=== PATIENT | female | born 1995 | race Hispanic/Latino ===

== ENCOUNTER 2018-05-30 06:00 | Inpatient (IN) | payer OTHER ==
[2018-05-30] MEDS ORDERED: Butorphanol Tartrate 1 MG/ML VIAL SLOW IVP PRN (08:52)
[2018-05-30] MEDS ORDERED: Ondansetron PF 4 MG/2 ML Vial IVP PRN ×2 (08:52→20:44)
[2018-05-30] MEDS ORDERED: Promethazine HCl 25 MG/ML VIAL IM PRN ×2 (08:52→20:44)
[2018-05-30] MEDS ORDERED: Acetaminophen 500 MG TAB PO PRN (08:52)
[2018-05-30] MEDS ORDERED: Ibuprofen 800 MG TAB PO PRN (08:52)
[2018-05-30] MEDS ORDERED: Misoprostol 200 MCG TAB PR PRN (08:52)
[2018-05-30] MEDS ORDERED: HYDROcodone/Acetaminophen 5/325 mg Tablet PO PRN ×2 (08:52)
[2018-05-30] MEDS ORDERED: NS / Oxytocin 40 units/1000ml 1,000 ML IV PRN (08:52)
[2018-05-30] MEDS ORDERED: Lidocaine 1% (PF) 30 ML VIAL SC PRN (08:52)
[2018-05-30] MEDS ORDERED: NS w/ Oxytocin 10 units 500 ML IV SCH ×2 (09:00)
[2018-05-30] MEDS: Lactated Ringer's 1,000 ML IV SCH (09:40)
[2018-05-30 10:20] LABS: Hemoglobin 10.7 g/dL (12.0-16.0); Mean Corpuscular Hemoglobin 30.4 pg (27.0-31.0); Mean Corpuscular Volume 89.5 fL (78.0-98.0); Mean Platelet Volume 7.3 fL (7.4-10.4); Platelet Count 287 thou/uL (130-400); RBC Distribution Width 12.9 % (11.5-14.5); Red Blood Cell (RBC) Count 3.52 mill/uL (4.20-5.40); White Blood Cell (WBC) Count 6.6 thou/uL (4.8-10.8)
[2018-05-30 10:30] VITALS: BMI 32.8
[2018-05-30 10:54] LABS: Syphilis Antibody Nonreactive (Nonreactive); Syphilis Antibody Index 0.05 S/CO (<1.00 Non-Reactive)
[2018-05-30 10:55] LABS: HBSAg Index 0.21 S/CO (0-0.99); Hep B Surf Ag Non-Reactive S/CO (NonReactive)
[2018-05-30] MEDS: Dextrose 5%-Lactated Ringers 1,000 ML IV SCH (13:48)
--- NOTE | 2018-05-30 17:45 | PDOC.LDHP ---
Labor and Delivery H&P Chief complaint: scheduled induction Current gestational age (weeks): 39 Grav: 4 Para: 3 Current complications: none, IUGR Abnormal US findings: No Current medications: pre-romero vitamins Allergies/Adverse Reactions: Allergies Allergy/AdvReac Type Severity Reaction Status Date / Time No Known Allergies Allergy Unverified 05/30/18 10:14 Social history: none - Physical Exam Vital signs reviewed and normal: yes General: NAD, breathing through contractions Heart: RRR Lungs: nonlabored breathing Abdomen: NTTP Extremeties: no edema FHT: category 1 - Vaginal Exam cm dilated: 10 Effacement: 100% Station: 2+ - Assessment L&D Assessment: elective induction at term - Plan Plan: admit to L&D
[2018-05-30] MEDS ORDERED: Milk Of Magnesia 30 ML UDCUP PO PRN (20:44)
[2018-05-30] MEDS ORDERED: Preparation H Ointment 28 GM TUBE PR PRN (20:44)
[2018-05-30] MEDS ORDERED: Lanolin Ointment 7 GM TUBE TOP PRN (20:44)
[2018-05-30] MEDS ORDERED: diphenhydrAMINE 25 MG CAP PO PRN (20:44)
[2018-05-30] MEDS ORDERED: Benzocaine/Menthol 20-0.5% 60 ML CAN TOP PRN (20:44)
[2018-05-30] MEDS ORDERED: Zolpidem Tartrate 5 MG TAB PO PRN (20:44)
[2018-05-30] MEDS ORDERED: NS / Oxytocin 40 units/1000ml 1,000 ML IV SCH (20:44)
[2018-05-30] MEDS ORDERED: Bisacodyl 10 MG SUPP PR PRN (20:44)
[2018-05-30] MEDS: Docusate Calcium (SURFAK) 240 MG CAP PO SCH (21:23)
[2018-05-30] MEDS: Ibuprofen 800 MG TAB PO SCH (21:23)
[2018-05-31] MEDS: HYDROcodone/Acetaminophen 5/325 mg Tablet PO PRN ×4 (02:36→17:33)
[2018-05-31] MEDS: Ibuprofen 800 MG TAB PO SCH ×3 (04:39→21:46)
[2018-05-31 07:00] LABS: Hemoglobin 9.9 g/dL (12.0-16.0); Mean Corpuscular HGB CONC 34.1 g/dL (32.0-36.0); Mean Corpuscular Volume 91.1 fL (78.0-98.0); Mean Platelet Volume 7.1 fL (7.4-10.4); Platelet Count 241 thou/uL (130-400); RBC Distribution Width 12.9 % (11.5-14.5); White Blood Cell (WBC) Count 9.5 thou/uL (4.8-10.8)
[2018-05-31] MEDS: Docusate Calcium (SURFAK) 240 MG CAP PO SCH ×2 (08:18→21:46)
[2018-05-31] MEDS: Prenatal Vitamin 1 TAB PO SCH (08:18)
[2018-05-31] MEDS: Ferrous Sulfate 325 MG TAB PO SCH ×2 (08:20→15:16)
[2018-05-31] MEDS ORDERED: Varicella virus, LIVE 0.5 ML VIAL SC ONE (09:00)
[2018-05-31] MEDS ORDERED: Adacel (T-DAP) 0.5 ML SYRINGE IM ONE (09:00)
[2018-05-31] MEDS ORDERED: Measles/Mumps/Rubella 10 MCG/0.5 ML VIAL SC ONE (09:00)
[2018-05-31] MEDS: Lactated Ringer's 1,000 ML IV SCH (09:15)
[2018-05-31] MEDS: Dextrose 5%-Lactated Ringers 1,000 ML IV SCH (09:15)
[2018-05-31 20:28] VITALS: TEMP 98
--- NOTE | 2018-05-31 21:08 | PDOC.PP ---
Post Progress Note Post Day #: 1 PO intake tolerated: yes Flatus: yes Ambulation: yes Vital Signs (12 hours) Temp Pulse Resp BP BP Pulse Ox 05/31/18 20:00 98.0 F 81 16 102/65 98 05/31/18 17:00 97.8 F 86 16 98/56 L 96 05/31/18 11:47 98.5 F 91 20 111/67 Weight Weight 168 lb - Physical Examination General: NAD Cardiovascular: no m/r/g, RRR Respiratory: clear to auscultation bilaterally, non-labored breathing Abdominal: + bowel sounds, lochia, no distention, appropriately TTP Extremities: negative homans (B) Neurological: no gross focal deficits Psychiatric: A&Ox3 (DC to home in the morning) Result Diagrams: 05/31/18 06:01 Additional Labs: Post Labs Blood Type O POSITIVE 05/30/18 09:55 Hep Bs Antigen Non-Reactive S/CO (NonReactive) 05/30/18 09:55
[2018-06-01] MEDS: HYDROcodone/Acetaminophen 5/325 mg Tablet PO PRN ×2 (02:24→08:14)
[2018-06-01] MEDS: Ibuprofen 800 MG TAB PO SCH ×2 (05:33→14:01)
[2018-06-01] MEDS: Docusate Calcium (SURFAK) 240 MG CAP PO SCH (08:13)
[2018-06-01] MEDS: Prenatal Vitamin 1 TAB PO SCH (08:14)
[2018-06-01] MEDS: Ferrous Sulfate 325 MG TAB PO SCH (08:14)
[2018-06-01 09:11] VITALS: BP 104/62
== END 2018-06-01 14:30 | disposition home or self-care (01) | DRG 807 ==
LOC: L&D 08:30 → 3SW 20:39
PROVIDERS: ADMIT Obstetrics & Gynecology; ATTEND Obstetrics & Gynecology
PROC: 10E0XZZ Delivery of Products of Conception, External Approach (ICD-10-PCS; principal; 2018-05-30)
PROC: 3E033VJ Introduction of Other Hormone into Peripheral Vein, Percutaneous Approach (ICD-10-PCS; 2018-05-30)
DX: O70.0 First degree perineal laceration during delivery (principal); Z37.0 Single live birth; Z3A.39 39 weeks gestation of pregnancy
CPT/HCPCS: 36415; 85027; 86780; 86850; 86900; 86901; 87340; 90471; 90686; 90715; G0008; J0595; J2001

== ENCOUNTER 2024-04-19 04:57 | Emergency (ER) | payer BC, OTHER ==
[2024-04-19 05:29] LABS: #Basophils Less than 0.03 10x3/uL (0.0-0.2); %Basophils 0.2 % (0.0-1.0); %Eosinophils 1.1 % (0.0-10.0); %Lymphocytes 15.4 % (21.0-51.0); %Monocytes 9.4 % (0.0-10.0); %Neutrophils 73.5 % (42.0-75.0); Hematocrit 37.1 % (36.0-47.0); Hemoglobin 12.2 g/dL (12.0-16.0); Mean Corpuscular HGB CONC 32.9 g/dL (32.0-36.0); Mean Corpuscular Hemoglobin 32.5 pg (27.0-31.0); Mean Corpuscular Volume 98.9 fL (78.0-98.0); Mean Platelet Volume 9.5 fL (7.4-10.4); Platelet Count 292 10x3/uL (130-400); RBC Distribution Width 11.8 % (11.5-14.5); Red Blood Cell (RBC) Count 3.75 mill/uL (4.20-5.40)
[2024-04-19] MEDS ORDERED: Ketorolac Tromethamine 30 MG (1 mL) VIAL ONE (05:35)
[2024-04-19] MEDS ORDERED: Morphine 4 MG/ML VIAL ONE (05:35)
[2024-04-19 06:12] LABS: ALT (SGPT) 12 U/L (8-55); AST (SGOT) 14 U/L (5-34); Albumin 3.5 g/dL (3.5-5.0); Alkaline Phosphatase 103 U/L (40-110); Anion Gap 11 mmol/L (10-20); BUN (Urea Nitrogen) 17 mg/dL (7.0-18.7); Bilirubin, Total 0.2 mg/dL (0.2-1.2); Calc. Creatinine Clearance 0 mL/min (70-130); Calcium 8.6 mg/dL (7.8-10.44); Carbon Dioxide 25 mmol/L (22-29); Chloride 107 mmol/L (98-107); Estimated GFR 106; Globulin 3.4 g/dL (2.4-3.5); Glucose 103 mg/dL (70-105); Lipase 25 U/L (8-78); Potassium 3.6 mmol/L (3.5-5.1); Protein, Total 6.9 g/dL (6.0-8.3); Sodium 139 mmol/L (136-145)
[2024-04-19 06:44] LABS: Bacteria/HPF None Seen HPF (None Seen); Bilirubin Negative (Negative); Blood, Urine Negative (Negative); CAUTI Indications for Culture Dysuria,urgency,freq; Clarity Clear (Clear); Glucose, Urine (Dipstick) Normal (Negative); Ketone, Urine Negative (Negative); Leukocyte Negative Leu/uL (Negative); Nitrite Negative (Negative); Protein, Urine (Dipstick) Negative (Neg-Trace); RBC/HPF 0-3 HPF (0-3); Specific Gravity, Urine 1.004 (1.002-1.036); Squamous Epithelial 0-3 HPF (0-3); Urobilinogen Normal mg/dL (Less than 2); WBC/HPF 0-3 HPF (0-3)
[2024-04-19 06:46] LABS: Urine Culture Reflex No No
== END 2024-04-19 10:28 | disposition home or self-care (01) ==
LOC: ERS 04:57
DX: K80.01 Calculus of gallbladder with acute cholecystitis with obstruction (principal); K83.8 Other specified diseases of biliary tract
CPT/HCPCS: 36415; 76705; 80053; 81001; 83690; 85025; 96374; 96375; J1885; J2272